=== PATIENT | female | born 1975 | race Caucasian/White ===

== ENCOUNTER 2019-02-10 19:01 | Emergency (ER) | payer OTHER ==
[~2019-02-10] VITALS: Ht 172.7 cm; Wt 71.0 kg
[~2019-02-10 19:01] MED LIST: ANTIVERT25 MG PO; MEDDOSEPAK PO; ZITHROMAX250 MG PO
[2019-02-10] MEDS ORDERED: TRAMADOL HCL50 MG PO (20:37)
[2019-02-10] MEDS ORDERED: VOLTAREN - GENE75 MG PO (20:37)
[2019-02-10 21:00] VITALS: BP 131/61
== END 2019-02-10 21:00 | disposition home or self-care (01) | DRG 563 ==
LOC: ED 19:01
PROC: 0SSPXZZ Reposition Right Toe Phalangeal Joint, External Approach (ICD-10-PCS; principal; 2019-02-10)
DX: S93.114A Dislocation of interphalangeal joint of right lesser toe(s), initial encounter (principal); W22.09XA Striking against other stationary object, initial encounter; Y92.009 Unspecified place in unspecified non-institutional (private) residence as the place of occurrence of the external cause